=== PATIENT | male | born 1980 | race Caucasian/White ===

== ENCOUNTER 2023-03-07 19:31 | Emergency (ER) | payer SELFPAY ==
[~2023-03-07] VITALS: Ht 180.3 cm; Wt 74.8 kg
[~2023-03-07 19:31] MED LIST: KROGER NIC21 MG/24 H T; LATU40TA PO
[2023-03-07] MEDS ORDERED: VIBRAMYCIN100 MG PO (22:06)
[2023-03-07] MEDS ORDERED: KENALOG 0.1% OI15 GM T (22:06)
== END 2023-03-07 23:21 | disposition home or self-care (01) ==
LOC: ED 19:31
DX: L03.115 Cellulitis of right lower limb (principal); J45.909 Unspecified asthma, uncomplicated; F41.9 Anxiety disorder, unspecified; Z88.2 Allergy status to sulfonamides; F10.10 Alcohol abuse, uncomplicated; F14.10 Cocaine abuse, uncomplicated; F17.200 Nicotine dependence, unspecified, uncomplicated; F15.10 Other stimulant abuse, uncomplicated

== ENCOUNTER 2024-02-22 13:52 | Emergency (ER) | payer OTHER ==
[~2024-02-22] VITALS: Ht 182.8 cm; Wt 81.6 kg
[~2024-02-22 13:52] MED LIST changes: +KENALOG 0.1% OI15 GM T; +VIBRAMYCIN100 MG PO
[2024-02-22] MEDS ORDERED: NAPROSYN500 MG PO (16:11)
== END 2024-02-22 16:25 | disposition home or self-care (01) ==
LOC: ED 13:52
DX: S63.501A Unspecified sprain of right wrist, initial encounter (principal); F41.9 Anxiety disorder, unspecified; J45.909 Unspecified asthma, uncomplicated; F32.A Depression, unspecified; F10.10 Alcohol abuse, uncomplicated; F14.10 Cocaine abuse, uncomplicated; F17.200 Nicotine dependence, unspecified, uncomplicated; F15.10 Other stimulant abuse, uncomplicated; Z88.2 Allergy status to sulfonamides; W19.XXXA Unspecified fall, initial encounter; Y93.89 Activity, other specified; Y92.009 Unspecified place in unspecified non-institutional (private) residence as the place of occurrence of the external cause; Y99.8 Other external cause status